=== PATIENT | male | born 1955 | race Two or more races ===

== ENCOUNTER → 2016-03-03 | Outpatient (CLI) | payer OTHER ==
[~2016-03-03] MED LIST: ASPIRIN81 MG ORAL; ENALAPRIL MALEA10 MG ORAL; GABAPENTIN300 MG ORAL; GLIPIZIDE5 MG ORAL; IBUPROFEN600 MG ORAL; METFORMIN HCL1000 M1 ORAL; MULTIVITAMINS1 EAC2 ORAL; PANTOPRAZOLE SO40 MG ORAL; SIMVASTATIN20 MG ORAL; TRADJENTA5 MG PO
[2016-03-03 09:03] LABS: BASOPHILS % (AUTO) 0.6 % (0.0-2.0); EOSINOPHILS % (AUTO) 2.6 % (0.0-3.0); LYMPHOCYTES % (AUTO) 18.3 % (20.0-45.0); MEAN CORPUSCULAR HEMOGLOBIN 28.8 PG (27.0-31.0); MEAN CORPUSCULAR HGB CONC 32.4 G/DL (32.0-36.0); MEAN CORPUSCULAR VOLUME 89 FL (80-99); MEAN PLATELET VOLUME 7.4 FL (6.5-10.1); MONOCYTES % (AUTO) 8.3 % (1.0-10.0); NEUTROPHILS % (AUTO) 70.1 % (45.0-75.0); PLATELET COUNT 260 K/UL (150-450); RED BLOOD COUNT 4.87 M/UL (4.70-6.10); RED CELL DISTRIBUTION WIDTH 12.7 % (11.6-14.8); WHITE BLOOD COUNT 9.5 K/UL (4.8-10.8)
[2016-03-03 09:22] LABS: PROTHROMBIN TIME 10.5 SEC (9.30-11.50)
[2016-03-03 09:23] LABS: ALANINE AMINOTRANSFERASE 32 U/L (3-41); ALBUMIN/GLOBULIN RATIO 1.1 (1.0-2.7); ANION GAP 15 (5-15); ASPARTATE AMINO TRANSFERASE 25 U/L (5-40); CALCIUM 9.9 mg/dL (8.6-10.2); CARBON DIOXIDE 26 mEQ/L (20-30); CHLORIDE 94 mEQ/L (98-107); GLOMERULAR FILTRATION RATE > 60 mL/min (>60); HEMOLYSIS 6; POTASSIUM 4.7 mEQ/L (3.4-4.9); SODIUM 135 mEQ/L (135-145); TOTAL PROTEIN 8.3 g/dL (6.6-8.7)
[2016-03-03 09:30] LABS: HEMOGLOBIN A1C 7.5 % (< 6.0)
--- NOTE | 2016-03-04 15:58 | Diagnostic Imaging Report ---
Indication: COUGH Technique: PA and lateral views of the chest. Findings: Comparison: 01/05/2014 Bridging osteophytes/syndesmophytes again noted throughout the thoracic spine. The extra pulmonary soft tissues, cardiomediastinal silhouette, pulmonary vasculature and parenchyma, and pleural surfaces remain unremarkable. 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 Otherwise negative PA and lateral chest radiographs , unchanged
== END | disposition home or self-care (01) ==
LOC: RAD 08:29
DX: Z01.818 Encounter for other preprocedural examination (principal); Z01.811 Encounter for preprocedural respiratory examination; H26.9 Unspecified cataract; E11.9 Type 2 diabetes mellitus without complications; R05 Cough
CPT/HCPCS: 36415; 71020; 80053; 83036; 85025; 85610; 85730

== ENCOUNTER → 2016-05-06 | Day surgery (SDC) | payer OTHER ==
[2016-04-24 10:57] LABS: BASOPHILS % (AUTO) 0.6 % (0.0-2.0); EOSINOPHILS % (AUTO) 1.9 % (0.0-3.0); MEAN CORPUSCULAR HEMOGLOBIN 29.2 PG (27.0-31.0); MEAN CORPUSCULAR HGB CONC 33.2 G/DL (32.0-36.0); MEAN CORPUSCULAR VOLUME 88 FL (80-99); MEAN PLATELET VOLUME 6.7 FL (6.5-10.1); NEUTROPHILS % (AUTO) 75.5 % (45.0-75.0); PLATELET COUNT 246 K/UL (150-450); RED BLOOD COUNT 4.89 M/UL (4.70-6.10); RED CELL DISTRIBUTION WIDTH 12.2 % (11.6-14.8); WHITE BLOOD COUNT 9.8 K/UL (4.8-10.8)
[2016-04-24 11:03] LABS: PROTHROMBIN TIME 10.2 SEC (9.30-11.50)
[2016-04-24 11:11] LABS: ALANINE AMINOTRANSFERASE 34 U/L (3-41); ALBUMIN/GLOBULIN RATIO 1.2 (1.0-2.7); ANION GAP 17 (5-15); ASPARTATE AMINO TRANSFERASE 28 U/L (5-40); CALCIUM 9.3 mg/dL (8.6-10.2); CARBON DIOXIDE 26 mEQ/L (20-30); CHLORIDE 93 mEQ/L (98-107); CHOLESTEROL 156 mg/dL (< 200); CHOLESTEROL/HDL RATIO 1.9 (3.3-4.4); CREATININE 0.9 mg/dL (0.7-1.2); GLOMERULAR FILTRATION RATE > 60 mL/min (>60); HEMOLYSIS 7; LDL CHOLESTEROL (CALC.) 61 mg/dL (60-99); MAGNESIUM 1.5 mg/dL (1.7-2.5); PHOSPHORUS 3.1 mg/dL (2.5-4.8); POTASSIUM 4.1 mEQ/L (3.4-4.9); SODIUM 136 mEQ/L (135-145)
[2016-04-24 11:15] LABS: HEMOGLOBIN A1C 7.1 % (< 6.0)
--- NOTE | 2016-05-02 11:58 | Pre-Procedure Note/Attestation ---
Pre-Procedure Note/Attestation Complete Prior to Procedure Planned Procedure: right Procedure Narrative: 1.CATARACT EXTRACTION WITH PHACO AND PC IOL IMPLANTATION, RIGHT EYE. Indications for Procedure Pre-Operative Diagnosis: 1. CATARACT, RIGHT EYE. Attestation I attest that I discussed the nature of the procedure; its benefits; risks and complications; and alternatives (and the risks and benefits of such alternatives ), prior to the procedure, with the patient (or the patient's legal nutrition representative). I attest that, if there was a reasonable possibility of needing a blood transfusion, the patient (or the patient's legal nutrition representative) was given the [facility] standardized written summary, pursuant to the Daryl Helen Blood Safety Act ([place] Health and Safety Code # 1645, as amended). I attest that I re-evaluated the patient just prior to the surgery and that there has been no change in the patient's H&P, except as documented below: MK WEINBERG May 02, 2016 11:58
[2016-05-06] VITALS (7 sets, daily range): BP systolic 123–171; BP diastolic 55–84
[~2016-05-06] VITALS: Ht 162.6 cm; Wt 90.7 kg
[~2016-05-06] MED LIST changes: +Akten 3.5% 1ml Btl ONE; +BSS 15ml BTL ONE; +BSS 500ml btl ONE; +Dexamethasone 4mg/ml vial ONE; +Diclofenac Sod 0.1% Op Soln ONE; +EPINEPHrine 1mg/1ml Amp ONE; +Gatifloxacin Opth Solution 0.5% ONE; +LR 1000ml 1,000 ML IV SCH; +LR 1000ml 1,000 ML IVLG SCH; +Lidocaine 1% MPF 10mg/ml 5ml ONE; +Midazolam 2mg/2ml Inj ONE; +NS Irrig 1000ml ONE; +Phenylephrine 10% Opth Soln 5ml ONE; +Povidone-Iodine 5% opth solution ONE; +Sodium Hyaluronate 10 mg/ml 0.85ml ONE; +Sterile Water Irrig 1000ml IRRIG ONE; +Tropicamide 1% Opth Soln ONE; +acetaZOLAMIDE 125mg tab ORAL ONE; +fentaNYL 100 mcg/2 mL IV PRN
[2016-05-06] MEDS: Diclofenac Sod 0.1% Op Soln RIGHT EYE SCH ×3 (06:31→06:54)
[2016-05-06] MEDS: Akten 3.5% 1ml Btl RIGHT EYE SCH ×3 (06:31→06:54)
[2016-05-06] MEDS: Phenylephrine 10% Opth Soln 5ml RIGHT EYE SCH ×3 (06:31→06:54)
[2016-05-06] MEDS: Gatifloxacin Opth Solution 0.5% RIGHT EYE SCH ×3 (06:32→06:54)
[2016-05-06] MEDS: Tropicamide 1% Opth Soln RIGHT EYE SCH ×3 (06:32→06:54)
--- NOTE | 2016-05-06 08:41 | Anethesia Preoperative Eval ---
Anesthesia Pre-op PMH/ROS General Date of Evaluation: May 06, 2016 Time of Evaluation: 08:11 Anesthesiologist: Santhosh ASA Score: ASA 3 Mallampati Score Class I : Soft palate, uvula, fauces, pillars visible Class II: Soft palate, uvula, fauces visible Class III: Soft palate, base of uvula visible Class IV: Only hard plate visible Mallampati Classification: Class III Surgeon: Lazara Diagnosis: Cataract right eye Surgical Procedure: Extraction of cataract with IOL Family History: no anesthesia problems Allergies: Coded Allergies: PENICILLINS (Verified Allergy, Unknown, 05/02/16) Medications: see eMAR Past Medical History Cardiovascular: Reports: HTN, Denies: CAD, [place], arrhythmia, other, valve dz Pulmonary: Denies: COPD, TRICIA, asthma, other Gastrointestinal/Genitourinary: Reports: GERD, Denies: CRI, ESRD, other Neurologic/Psychiatric: Denies: CVA, TIA, dementia, depression/anxiety, other Endocrine: Reports: DM, Denies: hypothyroidism, other, steroids HEENT: Reports: cataract (L), cataract (R) Hematology/Immune: Denies: DVT, anemia, bleeding disorder, other Musculoskeletal/Integumentary: Reports: OA PMH Narrative: HTN, DM, GERD, OA PSxH Narrative: Cataract surgery, ?scalp vs cranial surgery? (patient is unclear but denies any neurological issues except chronic right LE pain tx with Gabapentin). Anesthesia Pre-op Phys. Exam Physician Exam Last Vital Signs Date Time Temp Pulse Resp B/P Pulse Ox O2 Delivery O2 Flow Rate FiO2 05/06/16 06:35 98.5 76 18 171/84 98 Room Air Constitutional: NAD Neurologic: CN 2-12 intact Cardiovascular: RRR, no M/R/G Respiratory: CTA Airway Exam Mallampati Score: Class III MO: full ROM: full Teeth: intact Anesthesia Pre-op A/P Labs No contraindication for surgery Accucheck 84 Studies Pre-op Studies: EKG - NSR Risk Assessment & Plan Assessment: Hypertensive diabetic male for cataract extraction Plan: MAC, TIVA Status Change Before Surgery: No Pre-Antibiotics Drug: None TERESA KOWALSKI M.D. May 06, 2016 08:41
--- NOTE | 2016-05-06 08:42 | Immediate Post-Op Evaluation ---
Immediate Post-Op Evalulation Immediate Post-Op Evalulation Procedure: Extraction of cataract with IOL right eye Date of Evaluation: May 06, 2016 Time of Evaluation: 09:12 IV Fluids: 300 Blood Pressure Systolic: 142 Blood Pressure Diastolic: 71 Pulse Rate: 69 Respiratory Rate: 15 O2 Sat by Pulse Oximetry: 99 Temperature (Fahrenheit): 98.2 Pain Score (1-10): 0 Nausea: No Vomiting: No Complications No complication Patient Status: awake, patent, none Hydration Status: adequate Drug: None TERESA KOWALSKI M.D. May 06, 2016 08:42
--- NOTE | 2016-05-06 09:09 | 48 Hour Post Anesthesia Eval ---
Post Anesthesia Evaluation Procedure: Extraction of cataract with IOL right eye Date of Evaluation: May 06, 2016 Time of Evaluation: 09:40 Blood Pressure Systolic: 126 0: 55 Pulse Rate: 73 Respiratory Rate: 12 O2 Sat by Pulse Oximetry: 99 Airway: patent Nausea: No Vomiting: No Pain Intensity: 0 Hydration Status: adequate Cardiopulmonary Status: stable Mental Status/LOC: patient returned to baseline Follow-up Care/Observations: As per surgery Post-Anesthesia Complications: No anesthetic complication Follow-up care needed: N/A TERESA KOWALSKI M.D. May 06, 2016 09:09
--- NOTE | 2016-05-06 09:10 | Brief Operative Note ---
Immediate Post Operative Note Operative Note Chief Complaint: blurry vision, right eye. Difficulty reading and driving. Pre-op Diagnosis: 1. CATARACT, RIGHT EYE. Procedure: Cataract extraction with phaco and PC IOL implantation, right eye Post-op Diagnosis: same as pre-op Surgeon: Mk Haile MD Yacht Captain: None Additional Surgeons: None Anesthesiologist: Dr. Trevizo Anesthesia: MAC Specimen: none Complications: none Condition: stable Estimated Blood Loss: none Drains: none Implant(s) used?: Yes - Monofocal PC IOL was implanted in the right eye without complication MK HAILE May 06, 2016 09:10
--- NOTE | 2016-05-06 19:09 | Discharge Summary ---
Discharge Summary Discharge Summary Discharge Summary DATE OF ADMISSION:05/06/2016 DATE OF DISCHARGE: 2016 REASON FOR HOSPITALIZATION:Cataract, right eye SURGERY PERFORMED: Cataract extractin with antonieta and PC IOL implantation, left eye CONDITION IN THE HOSPITAL:The patient tolerated the surgery without complications. DISCHARGE CONDITION: The patient was stable at discharge. DISCHARGE MEDICATIONS: 1. Vigamox eye drops one drop q.i.d, 2. Prednisolone one drop q.i.d, 3.Ilevro, one dorop. POSTOPERATIVE ORDERS: The patient has to rest at home. No bending, No lifting, No watching Television tonight. POSTOPERATIVE FOLLOW UP: The patient will be followed in my office tomorrow morning at 7 o'clock. MK WEINBERG May 06, 2016 19:09
--- NOTE | 2016-05-06 19:19 | Operative Note - PDOC ---
Operative Note Operative Note Operative Report DATE OF OPERATION: 05/06/2016 FACILITY: [facility] SURGEON: Jhon Haile RAISED PRINTER: None ANESTHESIOLOGIST: Dr. Trevizo ANESTHESIA: Monitored anesthesia care (MAC) PREOPERATIVE DIAGNOSES: 1. Cataract, left eye. 2. Astigmatism, left eye. POSTOPERATIVE DIAGNOSES: 1. Cataract, left eye. 2. Astigmatism, left eye. SURGERY PERFORMED: 1. Cataract extraction with phacoemulsification and posterior chamber intraocular lens implantation in the left eye. 2. Limbal relaxing incision (I.R.I) left. INDICATION FOR SURGERY: The patient is an 60- year-old gentleman with history of high blood pressure, hyperlipidemia, diabetes mellitus, arthritis, morbid obesity, psoriasis. He has taking norvasc, onglyza, protonix, zocor. some back pain and osteoarthritis as well. He is taking Flomax for BPH. Diovan for high blood pressure. Plavix, aspirin and Lipitor for hypercholeserolemia. He is complaining of blurry vision in the right eye. On examination of the right eye. , the cornea is clear. Anterior chamber is clean and quiet, but is shallow. The pupillary reflex is normal. There is no RAPD. There is 4 nuclear sclerosis and 2 cortical cataract. The fundus shows normal optic disc, normal macula, and periphery retina is flat. To improve his vision int he left eye, the cataract has to be removed and posterior chamber intraocular lens has to be implanted. INFORMED CONSENT: The nature of the surgery, risks benefits, alternatives, and potential complications were explained all in detail to the patient. The potential complications including. But not limited to bleeding, infection, posterior capsular rupture,lens subluxation, flat anterior chamber,iris prolapse , uveitis, corneal edema, macular edema, endophthalmitis, retinal detachment, loss of vision and even loss of the eye were all explained in detail to the patient. The patient voiced understanding and accepted all the complications.The alternatives including accommodating lens, multifocal lens, toric lens, and conventional cataract surgery with limbal relaxing incision (LRI ) for treatment of astigmatism were all explained in detail to the patient who voiced understanding. The patient elected to have cataract surgery with insertion of the multifocal lens and limbal relaxing incision for astigmatism. Then, he signed the consent from,which is in the chart. DESCRIPTION OF SURGERY AND FINDINGS: Following hat, the patient was taken to the operation room in a stable condition. Lidocaine gel Akten 3.5% were applied to the conjuctiva of the left eye. Anesthesia was given by the anesthesiologist , Dr. Mcfarland. After adequate anesthesia and sedation had been achieved, the right eye was prepped and draped in the usual and sterile fashion for intraocular surgery.Following that, a speculum was placed in the left eye. Following that, before the patient was taken to the operation room, the 180 and 90 meridian of the cornea was marked. In the operation room, using a corneal marker and marking pen, the steep meridian of the cornea was marked. Following that, using a matteo knife, two parallel incisions was placed on the steep meridian of the cornea to treat the patients astigmatism. Following that, using a super sharp knife, a clear corneal side port was created. Following that 1% lidocaine without preservative (MPF) was injected into the anterior chamber.Viscoelastic agent Healon was injected into the anterior chamber. Following that, a clear corneal temporal keratotomy was performed with a 2.8 mm keratome. Following that, viscoelastic agent was injected into the anterior chamber again. Following that, Vision blue was injected under the viscoelastic agent to stain the anterior capsule. Following that, a clear fresh viscoelastic agent was injected into the anterior chamber again. Under the viscoelastic agent , an anterior capsulotomy was performed in the fashion of capsulorrhexis beautifully. Following that viscoelastic agent was removed from the anterior chamber. Following that, using a balanced salt solution hydrodissection and hydrodelineation was performed and the nucleus was freed. Following that, the viscoelastic agent was injected into the anterior chamber again to protect the endothelium of the cornea. Following that, using phacoemulsification machine in the fashion of horizontal chop, the nucleus was removed in toto. Following that , the cortical material was removed from the capsular bag with irrigation aspiration unit and the capsular bag was polished.Following that, the capsular bag was filled with viscoelastic agent. Following that, a+18.5 diopter , ZCB00 foldable PCIOL with serial number [id number] was injected into the capsular bag. Using a Sinskey hook, the lens was manipulated within the proper position.Following that, viscoelastic agent was removed from the anterior and posterior part of the lens.The anterior chamber was filled with balanced salt solution. Following that, the wound was hydrated with balanced salt solution and the wound was checked for leakage. There was no leakage. Following that, the wound was hydrated and the wound was checked for leakage. There was no leakage. Following that, Vigamox eye drops were applied to the conjuctiva of the left eye. The patient tolerated the surgery without complications. At the end of the surgery, the eye was patched with a clear sterile fenestrated shield. Following that, the patient was transferred to the recovery room. In the recovery room, 125mg Diamox was given by mouth stat. Postoperative orders and directions were given to the patient. The patient will be discharged home upon stabilization. The patient will be followed in my office tomorrow morning at 7 o 'clock. MD SULTANA Parker JOHN May 06, 2016 19:19
--- NOTE | 2016-05-25 09:42 | Physician Query ---
PLEASE COMPLETE DOCUMENT BEFORE SIGNING Dear Dr. Jhon Haile Date: 05/25/2016 Radiology Assistant/CDS Name: Miladis Skinner CCS Exercise your independent professional judgment when responding to the query. Questions asked do not imply a particular answer is desired or expected. We greatly appreciate your clarification on this issue. CLINICAL DOCUMENTATION STATES: REASON FOR HOSPITALIZATION:Cataract, right eye SURGERY PERFORMED: Cataract extractin with antonieta and PC IOL implantation, left eye DATE OF OPERATION: 05/06/2016 POSTOPERATIVE DIAGNOSES: 1. Cataract, left eye. 2. Astigmatism, left eye. SURGERY PERFORMED: 1. Cataract extraction with phacoemulsification and posterior chamber intraocular lens implantation in the left eye. 2. Limbal relaxing incision (I.R.I) left. Immediate post operative note: Pre-op Diagnosis: 1. CATARACT, RIGHT EYE. Procedure: Cataract extraction with phaco and PC IOL implantation, right eye The H&P, consent, and other documents of the chart have right eye but op report has left eye. Please respond to the following question: Please indicate the correct eye that surgery was performed on: ( ) Right ( ) Left Jhon Haile M.D. Date & [facility]
== END | disposition home or self-care (01) ==
LOC: SUR 05:49
DX: H25.11 Age-related nuclear cataract, right eye (principal); H25.011 Cortical age-related cataract, right eye; H52.201 Unspecified astigmatism, right eye; E78.5 Hyperlipidemia, unspecified; I10 Essential (primary) hypertension; E11.9 Type 2 diabetes mellitus without complications; E66.01 Morbid (severe) obesity due to excess calories; Z68.35 Body mass index [BMI] 35.0-35.9, adult; M19.90 Unspecified osteoarthritis, unspecified site; L40.9 Psoriasis, unspecified; L28.0 Lichen simplex chronicus; K21.9 Gastro-esophageal reflux disease without esophagitis; N40.0 Benign prostatic hyperplasia without lower urinary tract symptoms
CPT/HCPCS: 36415; 66984; 80053; 80061; 82962; 83036; 83735; 84100; 85025; 85610; 85730; J0171; J1100; J2250; V2632; 94003; 94150

== ENCOUNTER → 2016-05-13 | Day surgery (SDC) | payer OTHER ==
--- NOTE | 2016-05-09 09:45 | Pre-Procedure Note/Attestation ---
Pre-Procedure Note/Attestation Complete Prior to Procedure Planned Procedure: left Procedure Narrative: 1.CATARACT EXTRACTION WITH PHACO AND PC IOL IMPLANTATION, LEFT EYE. Indications for Procedure Pre-Operative Diagnosis: 1. CATARACT, LEFT EYE. Attestation I attest that I discussed the nature of the procedure; its benefits; risks and complications; and alternatives (and the risks and benefits of such alternatives ), prior to the procedure, with the patient (or the patient's legal circulation representative). I attest that, if there was a reasonable possibility of needing a blood transfusion, the patient (or the patient's legal circulation representative) was given the [facility] standardized written summary, pursuant to the Daryl Helen Blood Safety Act ([place] Health and Safety Code # 1645, as amended). I attest that I re-evaluated the patient just prior to the surgery and that there has been no change in the patient's H&P, except as documented below: MK WEINBERG May 09, 2016 09:45
[2016-05-13] VITALS (10 sets, daily range): BP systolic 144–156; BP diastolic 70–87
[~2016-05-13] VITALS: Ht 162.6 cm; Wt 90.7 kg
[~2016-05-13] MED LIST changes: +Carbachol 0.01% Op Soln 1.5ml vial ONE; +D5 1/2NS 1,000 ML IV SCH; +D5 1/2NS 1000ml IV ONE; +DiphenhydrAMINE 50mg/ml Inj IVP PRN; -LR 1000ml 1,000 ML IV SCH; +Propofol 10mg/ml 20ml IV ONE; +Tetracaine 0.5% Opth Soln ONE; +fentaNYL 100 mcg/2 mL IV ONE
[2016-05-13] MEDS: Akten 3.5% 1ml Btl LEFT EYE SCH ×3 (06:14→06:30)
[2016-05-13] MEDS: Phenylephrine 10% Opth Soln 5ml LEFT EYE SCH ×3 (06:14→06:30)
[2016-05-13] MEDS: Tropicamide 1% Opth Soln LEFT EYE SCH ×3 (06:14→06:30)
[2016-05-13] MEDS: Diclofenac Sod 0.1% Op Soln LEFT EYE SCH ×3 (06:14→06:30)
[2016-05-13] MEDS: Gatifloxacin Opth Solution 0.5% LEFT EYE SCH ×3 (06:15→06:31)
--- NOTE | 2016-05-13 07:42 | Anethesia Preoperative Eval ---
Anesthesia Pre-op PMH/ROS General Date of Evaluation: May 13, 2016 Time of Evaluation: 07:10 Anesthesiologist: Michael ASA Score: ASA 3 Mallampati Score Class I : Soft palate, uvula, fauces, pillars visible Class II: Soft palate, uvula, fauces visible Class III: Soft palate, base of uvula visible Class IV: Only hard plate visible Mallampati Classification: Class III Surgeon: Lazara Diagnosis: L eye cataract Surgical Procedure: L eye cataract extraction Anesthesia History: none Family History: no anesthesia problems Allergies: Coded Allergies: PENICILLINS (Verified Allergy, Unknown, 05/02/16) Past Medical History Cardiovascular: Reports: HTN, Denies: CAD, [place], arrhythmia, other, valve dz Pulmonary: Reports: TRICIA, Denies: COPD, asthma, other Gastrointestinal/Genitourinary: Reports: GERD, Denies: CRI, ESRD, other Neurologic/Psychiatric: Denies: CVA, TIA, dementia, depression/anxiety, other Endocrine: Reports: DM, Denies: hypothyroidism, other, steroids HEENT: Reports: cataract (L), cataract (R), Denies: [place] (L), [place] (R), glaucoma, other Hematology/Immune: Denies: DVT, anemia, bleeding disorder, other Musculoskeletal/Integumentary: Denies: DDD, DJD, OA, RA, edema, other Other: obesity PMH Narrative: As above PSxH Narrative: R eye cataract Anesthesia Pre-op Phys. Exam Physician Exam Last Vital Signs Date Time Temp Pulse Resp B/P Pulse Ox O2 Delivery O2 Flow Rate FiO2 05/13/16 06:28 98.0 76 20 154/87 98 Room Air Constitutional: NAD Neurologic: CN 2-12 intact Cardiovascular: RRR, no M/R/G Respiratory: CTA Gastrointestinal: other - obesity Airway Exam Mallampati Score: Class III MO: limited Neck: short ROM: limited Teeth: missing Dentures: no lower, no upper Anesthesia Pre-op A/P Labs see chart Studies Pre-op Studies: EKG - NSR Risk Assessment & Plan Assessment: ASA 3 Plan: MAC Status Change Before Surgery: No Pre-Antibiotics Drug: none MARY DOTSON M.D. May 13, 2016 07:42
--- NOTE | 2016-05-13 08:07 | Brief Operative Note ---
Immediate Post Operative Note Operative Note Chief Complaint: Blurry vision, left eye. Difficulty driving and reading Pre-op Diagnosis: 1. CATARACT, LEFT EYE. Procedure: Cataract extraction with phaco and PC IOL imlantation, left eye Post-op Diagnosis: same as pre-op Surgeon: Mk Haile MD. Clinical Veterinarian: None Additional Surgeons: None Anesthesiologist: Dr. Rodriguez Anesthesia: MAC Specimen: none Complications: none Condition: stable Estimated Blood Loss: none Drains: none Implant(s) used?: Yes - Monofocal PC IOl implanted in the left eye without ccomplication MK HAILE May 13, 2016 08:07
--- NOTE | 2016-05-13 08:38 | Immediate Post-Op Evaluation ---
Immediate Post-Op Evalulation Immediate Post-Op Evalulation Procedure: L eye cataract extraction with IOL Date of Evaluation: May 13, 2016 Time of Evaluation: 08:08 IV Fluids: 200 Blood Products: none Estimated Blood Loss: none Urinary Output: none Blood Pressure Systolic: 134 Blood Pressure Diastolic: 62 Pulse Rate: 78 Respiratory Rate: 20 O2 Sat by Pulse Oximetry: 99 Temperature (Fahrenheit): 97.5 Pain Score (1-10): 1 Nausea: No Vomiting: No Complications none Patient Status: awake, patent, none Hydration Status: adequate MARY DOTSON M.D. May 13, 2016 08:38
--- NOTE | 2016-05-13 09:32 | 48 Hour Post Anesthesia Eval ---
Post Anesthesia Evaluation Procedure: L eye cataract extraction with IOL Date of Evaluation: May 13, 2016 Time of Evaluation: 09:31 Blood Pressure Systolic: 144 0: 75 Pulse Rate: 68 Respiratory Rate: 20 Temperature (Fahrenheit): 97.6 O2 Sat by Pulse Oximetry: 98 Airway: patent Nausea: No Vomiting: No Pain Intensity: 1 Hydration Status: adequate Cardiopulmonary Status: stable Mental Status/LOC: patient returned to baseline Follow-up Care/Observations: n/a Post-Anesthesia Complications: none Follow-up care needed: ready to discharge MARY DOTSON M.D. May 13, 2016 09:32
--- NOTE | 2016-05-13 15:48 | Discharge Summary ---
Discharge Summary Discharge Summary Discharge Summary DATE OF ADMISSION:05/13/2016 DATE OF DISCHARGE:05/13/2016 REASON FOR HOSPITALIZATION:Cataract,laft eye SURGERY PERFORMED: Cataract extraction with phaco and PC IOL implantation, left eye CONDITION IN THE HOSPITAL:The patient tolerated the surgery without complications. DISCHARGE CONDITION: The patient was stable at discharge. DISCHARGE MEDICATIONS: 1. Vigamox eye drops one drop q.i.d, 2. Prednisolone one drop q.i.d, 3. Ilevro eye drop, one drop q.d. POSTOPERATIVE ORDERS: The patient has to rest at home. No bending, No lifting, No watching Television tonight. POSTOPERATIVE FOLLOW UP: The patient will be followed in my office tomorrow morning at 9 o'clock. MK WEINBERG May 13, 2016 15:48
--- NOTE | 2016-05-13 16:09 | Operative Note - PDOC ---
Operative Note Operative Note Operative Report DATE OF OPERATION:05/13/2016 FACILITY: [facility] SURGEON: Jhon Haile EXCEPTIONAL STUDENT EDUCATION AIDE: None ANESTHESIOLOGIST: Dr. Rodriguez ANESTHESIA: Monitored anesthesia care (MAC) PREOPERATIVE DIAGNOSES: 1. Cataract, left eye POSTOPERATIVE DIAGNOSES: 1. Cataract, left eye SURGERY PERFORMED: 1. Cataract extraction with phacoemulsification and posteriro chamber intraocular lens implantation in the left eye. INDICATION FOR SURGERY: The patient is a 60- year-old gentleman with history of high blood pressure, dyslipidemia, diabetes mellitus.arthritis, morbid obesity, psoriasis. He is taking aspirin, enalepril, ferrous sulfate, gabapentin , glipizide, metformin,norvasc, onglyza, and zocor. He is not allergic to any medicationhe denies any drug or tobacco use. He is complaining of blurry vision in the left eye. On examination of the Left eye., the cornea is clear. Anterior chamber is clean and quiet, but is shallow. The pupillary reflex is normal. There is no RAPD. There is 4 nuclear sclerosis and 2 cortical cataract. The fundus shows normal optic disc, normal macula, and periphery retina is flat, He had cataract surgery in the right eye last week and he is happy with the result. To improve his vision int he left eye, the cataract has to be removed and posterior chamber intraocular lens has to be implanted. INFORMED CONSENT: The nature of the surgery, risks benefits, alternatives, and potential complications were explained all in detail to the patient. The potential complications including. But not limited to bleeding, infection, posterior capsular rupture,lens subluxation, flat anterior chamber,iris prolapse , uveitis, corneal edema, macular edema, endophthalmitis, retinal detachment, loss of vision and even loss of the eye were all explained in detail to the patient. The patient voiced understanding and accepted all the complications.The alternatives including accommodating lens, multifocal lens, toric lens, and conventional cataract surgery with limbal relaxing incision (LRI ) for treatment of astigmatism were all explained in detail to the patient who voiced understanding. The patient elected to have cataract surgery without insertion of the multifocal lens and limbal relaxing incision for astigmatism. only monofocal lens insertion.Then, he signed the consent from,which is in the chart. DESCRIPTION OF SURGERY AND FINDINGS: Following hat, the patient was taken to the operation room in a stable condition. Lidocaine gel Akten 3.5% were applied to the conjunctiva of the left eye. Anesthesia was given by the anesthesiologist , . After adequate anesthesia and sedation had been achieved, the left eye was prepped and draped in the usual and sterile fashion for intraocular surgery.Following that, a speculum was placed in the left eye. Following that, using a super sharp knife, a clear corneal side port was created. Following that 1% lidocaine without preservative (MPF) was injected into the anterior chamber.Viscoelastic agent Healon was injected into the anterior chamber. Following that, a clear corneal temporal keratotomy was performed with a 2.8 mm keratome. Following that, viscoelastic agent was injected into the anterior chamber again. Following that, Vision blue was injected under the viscoelastic agent to stain the anterior capsule. Following that, a clear fresh viscoelastic agent was injected into the anterior chamber again. Under the viscoelastic agent, an anterior capsulotomy was performed in the fashion of capsulorrhexis beautifully. Following that viscoelastic agent was removed from the anterior chamber. Following that, using a balanced salt solution hydrodissection and hydrodelineation was performed and the nucleus was freed. Following that, the viscoelastic agent was injected into the anterior chamber again to protect the endothelium of the cornea. Following that, using phacoemulsification machine inthe fashion of horizontal chop, the nucleus was removed in toto. Following that, the cortical material was removed from the capsular bag with irrigation aspiration unit and the capsular bag was polished.Following that, the capsular bag was filled with viscoelastic agent. Following that, a+18.0 18 diopter , [id number] foldable PCIOL with serial [id number] was injected into the capsular bag. Using a Sinskey hook, the lens was manipulated within the proper position.Following that, viscoelastic agent was removed from the anterior and posterior part of the lens.The anterior chamber was filled with balanced salt solution. Following that, the wound was hydrated with balanced salt solution and the wound was checked for leakage. There was no leakage. Following that, the wound was hydrated and the wound was checked for leakage. There was no leakage. Following that, Vigamox eye drops were applied to the conjuctiva of the left eye. The patient tolerated the surgery without complications. At the end of the surgery, the eye was patched with a clear sterile fenestrated shield. Following that, the patient was transferred to the recovery room. In the recovery room, 125mg Diamox was given by mouth stat. Postoperative orders and directions were given to the patient. The patient will be discharged home upon stabilization. The patient will be followed in my office tomorrow morning at 7 o 'clock. MD SULTANA Parker JOHN May 13, 2016 16:09
--- NOTE | 2016-05-14 16:39 | Pre-op HX & Phy Repo 2 SIG ---
DATE OF ADMISSION: 05/13/2016 REASON FOR EVALUATION: I was asked by Dr. Jhon Haile to see this 61-year-old male, who is going for elective surgery on the left eye. The patient has cataract, left eye. Please see full history and physical by music researcher, Dr. Jhon Haile. The patient was evaluated. Chart was reviewed. PAST MEDICAL HISTORY: Remarkable for hypertension, diabetes mellitus type 2. Denies history of heart attack, chest pain, or palpitation. The patient had head injury many years ago. No history of respiratory problem. No history of renal failure. No GI bleeding. No stroke or seizures. Denies history of thyroid problem. The patient has peripheral neuropathy. This is secondary to diabetes. No anemia. PAST SURGICAL HISTORY: Right eye cataract and head injuries. FAMILY HISTORY: Father from complication of hypertension and diabetes. Mother not known, of age or . ALLERGY: To penicillin. MEDICATIONS: Metformin, glipizide, Tradjenta, baby aspirin, multivitamins, enalapril, and gabapentin. HABITS: The patient denies history of smoke or alcohol habits. PHYSICAL EXAMINATION: GENERAL: The patient is alert, well-developed, well-nourished male in his 60s. VITAL SIGNS: Blood pressure 154/87, temperature 98, respirations 20, O2 saturation 98%, and pulse 76 and regular. SKIN: Dry, clear. No diaphoresis. LYMPH NODES: Not enlarged. HEENT: Head normocephalic. Ears, clear. Eyes, full description per Dr. Jhon Haile. Mouth clear and moist. No dentures. NECK: Supple. No jugular vein distention. Carotid artery +2. Trachea midline. CHEST: No deformity or asymmetry. LUNGS: Clear. No rales or rhonchi. No wheezing. HEART: Sinus rhythm. No ectopy. No murmur. No S3 or S4. ABDOMEN: Soft, benign. Liver and spleen not enlarged. EXTREMITIES: No calf tenderness. No edema. No varicose veins. GENITOURINARY TRACT: No dysuria. No CVA tenderness. NERVOUS SYSTEM: No tremor. No nystagmus. LABORATORY AND DIAGNOSTIC DATA: The patient did not eat or drink from last night. Chest x-ray, no acute disease. 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 First blood sugar when the patient came was 56. We started D5 IV and blood sugar was 80 milligram/deciliter at 7 a.m. IMPRESSION: 1. Cataract, right eye. 2. Hypertension. 3. Diabetes mellitus type 2. 4. Hyperlipidemia. 5. Peripheral neuropathy. 6. Obesity. PLAN: Cataract extraction, left eye with intraocular lens implant per Dr. Jhon Haile. CONCLUSION: The patient's blood sugars stabilized. The patient has tendency to hypoglycemia. His vital signs are stable. The patient's condition optimized for surgery. Nilda Canada M.D. DR: Dora JOB#: [id number] CC:
== END | disposition home or self-care (01) ==
LOC: SUR 05:41
DX: H25.12 Age-related nuclear cataract, left eye (principal); H25.012 Cortical age-related cataract, left eye; E11.42 Type 2 diabetes mellitus with diabetic polyneuropathy; I10 Essential (primary) hypertension; E78.5 Hyperlipidemia, unspecified; E66.01 Morbid (severe) obesity due to excess calories; G47.33 Obstructive sleep apnea (adult) (pediatric); K21.9 Gastro-esophageal reflux disease without esophagitis; M19.90 Unspecified osteoarthritis, unspecified site; L40.9 Psoriasis, unspecified; Z79.84 Long term (current) use of oral hypoglycemic drugs; Z79.82 Long term (current) use of aspirin; Z88.0 Allergy status to penicillin
CPT/HCPCS: 66984; 82962; J0171; J1100; J2250; J2704; J3010; V2632; 94003; 94150

== ENCOUNTER 2016-12-22 08:23 | Outpatient (CLI) | payer OTHER ==
[~2016-12-22 08:23] MED LIST changes: -Akten 3.5% 1ml Btl ONE; -BSS 15ml BTL ONE; -BSS 500ml btl ONE; -Carbachol 0.01% Op Soln 1.5ml vial ONE; -D5 1/2NS 1,000 ML IV SCH; -D5 1/2NS 1000ml IV ONE; -Dexamethasone 4mg/ml vial ONE; -Diclofenac Sod 0.1% Op Soln ONE; -DiphenhydrAMINE 50mg/ml Inj IVP PRN; -EPINEPHrine 1mg/1ml Amp ONE; -Gatifloxacin Opth Solution 0.5% ONE; -LR 1000ml 1,000 ML IVLG SCH; -Lidocaine 1% MPF 10mg/ml 5ml ONE; -Midazolam 2mg/2ml Inj ONE; -NS Irrig 1000ml ONE; -Phenylephrine 10% Opth Soln 5ml ONE; -Povidone-Iodine 5% opth solution ONE; -Propofol 10mg/ml 20ml IV ONE; -Sodium Hyaluronate 10 mg/ml 0.85ml ONE; -Sterile Water Irrig 1000ml IRRIG ONE; -Tetracaine 0.5% Opth Soln ONE; -Tropicamide 1% Opth Soln ONE; -acetaZOLAMIDE 125mg tab ORAL ONE; -fentaNYL 100 mcg/2 mL IV ONE; -fentaNYL 100 mcg/2 mL IV PRN
[2016-12-22 08:48] LABS: BASOPHILS % (AUTO) 0.7 % (0.0-2.0); EOSINOPHILS % (AUTO) 3.8 % (0.0-3.0); HEMATOCRIT 44.2 % (42.0-52.0); HEMOGLOBIN 14.4 G/DL (14.2-18.0); MEAN CORPUSCULAR VOLUME 91 FL (80-99); MONOCYTES % (AUTO) 8.7 % (1.0-10.0); NEUTROPHILS % (AUTO) 64.8 % (45.0-75.0); PLATELET COUNT 252 K/UL (150-450); RED BLOOD COUNT 4.83 M/UL (4.70-6.10); RED CELL DISTRIBUTION WIDTH 11.8 % (11.6-14.8); WHITE BLOOD COUNT 8.4 K/UL (4.8-10.8)
[2016-12-22 08:59] LABS: APPEARANCE,URINE CLEAR; BILIRUBIN, URINE NEGATIVE (NEGATIVE); COLOR,URINE PALE YELLOW; GLUCOSE, URINE (UA) NEGATIVE (NEGATIVE); KETONES,URINE NEGATIVE (NEGATIVE); LEUKOCYTE ESTERASE ,URINE 1+ (NEGATIVE); NITRITE,URINE NEGATIVE (NEGATIVE); PH,URINE 8 (4.5-8.0); PROTEIN,URINE 2+ (NEGATIVE); UROBILINOGEN,URINE NORMAL MG/DL (0.0-1.0)
[2016-12-22 09:09] LABS: ALANINE AMINOTRANSFERASE 100 U/L (12-78); ALBUMIN 3.7 G/DL (3.4-5.0); ALBUMIN/GLOBULIN RATIO 0.8 (1.0-2.7); ALKALINE PHOSPHATASE 108 U/L (46-116); ANION GAP 7 mmol/L (5-15); ASPARTATE AMINO TRANSFERASE 42 U/L (15-37); BILIRUBIN,TOTAL 0.4 MG/DL (0.2-1.0); BLOOD UREA NITROGEN 14 mg/dL (7-18); CALCIUM 9.3 MG/DL (8.5-10.1); CARBON DIOXIDE 30 MMOL/L (21-32); CHLORIDE 100 MMOL/L (98-107); CREATININE 0.9 MG/DL (0.55-1.30); POTASSIUM 4.4 MMOL/L (3.5-5.1); SODIUM 137 MMOL/L (136-145)
[2016-12-22 09:23] LABS: PHOSPHORUS 3.6 MG/DL (2.5-4.9)
== END 2016-12-22 10:23 | disposition home or self-care (01) ==
LOC: LAB 08:23
DX: E11.9 Type 2 diabetes mellitus without complications (principal); I10 Essential (primary) hypertension
CPT/HCPCS: 36415; 80053; 81003; 82306; 82607; 82746; 83036; 83735; 84100; 84153; 84443; 85025

== ENCOUNTER 2017-01-19 08:46 | Outpatient (CLI) | payer OTHER | END 2017-01-19 10:46 | disposition home or self-care (01) | LOC: LAB 08:46 | DX: R79.1 Abnormal coagulation profile (principal) | CPT/HCPCS: 86705; 86709; 86803; 87340 ==

== ENCOUNTER 2017-01-26 09:36 | Outpatient (CLI) | payer OTHER ==
--- NOTE | 2017-01-29 11:03 | Diagnostic Imaging Report ---
APPROVED REPORT CPT Code: 15194 Symptoms Comments: Vascular calcifications VELOCITY MEASUREMENTS AND DOPPLER WAVEFORM ANALYSIS RIGHTcm/secWaveformSeverityLEFTcm/secWaveformSeverity Com Fem Art. 72TriphasicCom Fem Art. 83Triphasic Fem Art Prox. 72TriphasicFem Art Prox. 83Triphasic Fem Art Mid. 67TriphasicFem Art Mid. 92Triphasic Fem Art Dist. 87TriphasicFem Art Dist. 80Triphasic Pop Art Prox. 54TriphasicPop Art Prox. 88Triphasic COMMAND CENTER ANALYST Prox. 119TriphasicPTA Prox. 88Triphasic Per Art Prox. 61TriphasicPer Art Prox. 100Triphasic LUDY Prox. 58TriphasicATA Prox. 50Triphasic BILATERAL: Common femoral artery waveform analysis is within normal limits at rest. Color flow duplex sonography reveals mild calcification throughout the superficial femoral, and popliteal arteries. There is no evidence of stenosis or occlusion within these segments. The tibioperoneal trunks are patent. The posterior tibial, anterior tibial and dorsalis pedis arteries are also patent. KATHERINE within normal limits as follows: 1.1 (right leg) and 1.1 (left leg). Doppler tibial artery waveform analysis is within normal limits bilaterally.
--- NOTE | 2017-01-29 11:03 | Diagnostic Imaging Report ---
APPROVED REPORT CPT Code: 52540 Present Symptoms Comments: Vascular calcifications RIGHT LEG: Venous imaging reveals a patent deep venous system. There is no evidence of thrombus within the femoral, popliteal or tibial segments. The greater saphenous vein is also within normal limits. Doppler indicates normal spontaneous flow within these segments. LEFT LEG: Venous imaging reveals recanalized chronic thrombus in the superficial femoral vein. Large collateral vein noted anterior to the superficial femoral artery. The remainder of the deep venous system is within normal limits. There is no evidence of thrombus in the common femoral, popliteal or calf veins. The greater saphenous vein is also within normal limits. Doppler indicates normal spontaneous flow within these segments. There is no evidence of acute deep vein thrombosis.
== END 2017-01-26 11:36 | disposition home or self-care (01) ==
LOC: VAS 09:36
DX: I70.0 Atherosclerosis of aorta (principal)
CPT/HCPCS: 93925; 93970

== ENCOUNTER 2017-09-02 09:09 | Outpatient (CLI) | payer OTHER ==
[2017-09-02 09:49] LABS: EOSINOPHILS % (AUTO) 5.1 % (0.0-3.0); HEMATOCRIT 39.8 % (42.0-52.0); HEMOGLOBIN 13.3 G/DL (14.2-18.0); LYMPHOCYTES % (AUTO) 12.6 % (20.0-45.0); MEAN CORPUSCULAR VOLUME 88 FL (80-99); MONOCYTES % (AUTO) 9.1 % (1.0-10.0); NEUTROPHILS % (AUTO) 72.2 % (45.0-75.0); PLATELET COUNT 241 K/UL (150-450); RED BLOOD COUNT 4.52 M/UL (4.70-6.10); RED CELL DISTRIBUTION WIDTH 12.1 % (11.6-14.8); WHITE BLOOD COUNT 10.6 K/UL (4.8-10.8)
[2017-09-02 10:08] LABS: ALANINE AMINOTRANSFERASE 38 U/L (12-78); ALBUMIN 3.5 G/DL (3.4-5.0); ALBUMIN/GLOBULIN RATIO 0.8 (1.0-2.7); ALKALINE PHOSPHATASE 85 U/L (46-116); ANION GAP 6 mmol/L (5-15); ASPARTATE AMINO TRANSFERASE 19 U/L (15-37); BILIRUBIN,TOTAL 0.5 MG/DL (0.2-1.0); BLOOD UREA NITROGEN 17 mg/dL (7-18); CALCIUM 8.5 MG/DL (8.5-10.1); CARBON DIOXIDE 28 MMOL/L (21-32); CHLORIDE 103 MMOL/L (98-107); CHOLESTEROL 133 MG/DL (< 200); CREATININE 0.9 MG/DL (0.55-1.30); HDL CHOLESTEROL 68 MG/DL (40-60); PHOSPHORUS 3.6 MG/DL (2.5-4.9); POTASSIUM 4.3 MMOL/L (3.5-5.1); SODIUM 137 MMOL/L (136-145); TRIGLYCERIDES 72 MG/DL (30-150)
== END 2017-09-02 11:09 | disposition home or self-care (01) ==
LOC: LAB 09:09
DX: I10 Essential (primary) hypertension (principal); E11.9 Type 2 diabetes mellitus without complications; M25.561 Pain in right knee; E66.9 Obesity, unspecified; E78.00 Pure hypercholesterolemia, unspecified
CPT/HCPCS: 36415; 80053; 80061; 82306; 82607; 82746; 83036; 83735; 84100; 84153; 84443; 85025

== ENCOUNTER → 2018-03-10 | Outpatient (CLI) | payer OTHER ==
[2018-03-10 09:56] LABS: BASOPHILS % (AUTO) 0.6 % (0.0-2.0); EOSINOPHILS % (AUTO) 1.1 % (0.0-3.0); HEMATOCRIT 40.9 % (42.0-52.0); HEMOGLOBIN 13.7 G/DL (14.2-18.0); LYMPHOCYTES % (AUTO) 9.8 % (20.0-45.0); MEAN CORPUSCULAR VOLUME 88 FL (80-99); NEUTROPHILS % (AUTO) 81.5 % (45.0-75.0); PLATELET COUNT 261 K/UL (150-450); RED BLOOD COUNT 4.62 M/UL (4.70-6.10); RED CELL DISTRIBUTION WIDTH 12.5 % (11.6-14.8); WHITE BLOOD COUNT 11.6 K/UL (4.8-10.8)
[2018-03-10 10:13] LABS: ALANINE AMINOTRANSFERASE 37 U/L (12-78); ALBUMIN 3.7 G/DL (3.4-5.0); ALBUMIN/GLOBULIN RATIO 0.8 (1.0-2.7); ALKALINE PHOSPHATASE 111 U/L (46-116); ANION GAP 7 mmol/L (5-15); ASPARTATE AMINO TRANSFERASE 19 U/L (15-37); BILIRUBIN,TOTAL 0.6 MG/DL (0.2-1.0); BLOOD UREA NITROGEN 9 mg/dL (7-18); CALCIUM 9.2 MG/DL (8.5-10.1); CARBON DIOXIDE 29 MMOL/L (21-32); CHLORIDE 99 MMOL/L (98-107); CHOLESTEROL 157 MG/DL (< 200); CREATININE 0.8 MG/DL (0.55-1.30); HDL CHOLESTEROL 80 MG/DL (40-60); PHOSPHORUS 3.7 MG/DL (2.5-4.9); POTASSIUM 4.3 MMOL/L (3.5-5.1); SODIUM 135 MMOL/L (136-145); TRIGLYCERIDES 85 MG/DL (30-150)
[2018-03-10 10:16] LABS: APPEARANCE,URINE CLEAR; BILIRUBIN, URINE NEGATIVE (NEGATIVE); COLOR,URINE PALE YELLOW; GLUCOSE, URINE (UA) NEGATIVE (NEGATIVE); KETONES,URINE NEGATIVE (NEGATIVE); LEUKOCYTE ESTERASE ,URINE NEGATIVE (NEGATIVE); NITRITE,URINE NEGATIVE (NEGATIVE); PH,URINE 7 (4.5-8.0); PROTEIN,URINE 1+ (NEGATIVE); UROBILINOGEN,URINE NORMAL MG/DL (0.0-1.0)
== END | disposition home or self-care (01) ==
LOC: LAB 09:05
DX: E11.9 Type 2 diabetes mellitus without complications (principal); I10 Essential (primary) hypertension; E66.9 Obesity, unspecified
CPT/HCPCS: 36415; 80053; 80061; 81003; 82306; 82607; 83036; 83735; 84100; 84153; 84443; 85025; 85610; 85730; 87086

== ENCOUNTER → 2018-09-15 | Outpatient (CLI) | payer OTHER ==
[2018-09-15 09:58] LABS: BASOPHILS % (AUTO) 0.4 % (0.0-2.0); EOSINOPHILS % (AUTO) 1.2 % (0.0-3.0); HEMATOCRIT 41.1 % (42.0-52.0); HEMOGLOBIN 13.5 G/DL (14.2-18.0); LYMPHOCYTES % (AUTO) 7.3 % (20.0-45.0); MEAN CORPUSCULAR VOLUME 86 FL (80-99); MONOCYTES % (AUTO) 7.3 % (1.0-10.0); NEUTROPHILS % (AUTO) 83.7 % (45.0-75.0); PLATELET COUNT 355 K/UL (150-450); RED BLOOD COUNT 4.78 M/UL (4.70-6.10); RED CELL DISTRIBUTION WIDTH 12.5 % (11.6-14.8)
[2018-09-15 09:59] LABS: APPEARANCE,URINE CLEAR; BILIRUBIN, URINE NEGATIVE (NEGATIVE); COLOR,URINE PALE YELLOW; GLUCOSE, URINE (UA) NEGATIVE (NEGATIVE); KETONES,URINE NEGATIVE (NEGATIVE); LEUKOCYTE ESTERASE ,URINE NEGATIVE (NEGATIVE); NITRITE,URINE NEGATIVE (NEGATIVE); PH,URINE 7 (4.5-8.0); PROTEIN,URINE NEGATIVE (NEGATIVE); UROBILINOGEN,URINE 1 MG/DL (0.0-1.0)
[2018-09-15 10:12] LABS: ALANINE AMINOTRANSFERASE 20 U/L (12-78); ALBUMIN 3.6 G/DL (3.4-5.0); ALBUMIN/GLOBULIN RATIO 0.7 (1.0-2.7); ALKALINE PHOSPHATASE 86 U/L (46-116); ANION GAP 7 mmol/L (5-15); ASPARTATE AMINO TRANSFERASE 16 U/L (15-37); BILIRUBIN,TOTAL 0.7 MG/DL (0.2-1.0); BLOOD UREA NITROGEN 10 mg/dL (7-18); CALCIUM 9.1 MG/DL (8.5-10.1); CARBON DIOXIDE 29 MMOL/L (21-32); CHLORIDE 97 MMOL/L (98-107); CREATININE 0.9 MG/DL (0.55-1.30); PHOSPHORUS 4.3 MG/DL (2.5-4.9); POTASSIUM 4.6 MMOL/L (3.5-5.1); SODIUM 133 MMOL/L (136-145)
--- NOTE | 2018-09-15 11:14 | Diagnostic Imaging Report ---
Indication: Dyspnea Comparison: None 2 views of the chest obtained. Findings: Cardiomediastinal silhouette and pulmonary vascularity are within normal limits for age. The diaphragmatic contour is smooth and costophrenic angles are sharp. No pleural effusions are identified. The bones are osteopenic. Impression: No acute disease
== END | disposition home or self-care (01) ==
LOC: LAB 08:55
DX: R06.00 Dyspnea, unspecified (principal); M85.80 Other specified disorders of bone density and structure, unspecified site; R05 Cough; G72.9 Myopathy, unspecified
CPT/HCPCS: 36415; 71046; 80053; 81001; 83735; 84100; 85025; 85610; 85730; 87081

== ENCOUNTER → 2019-08-11 | Outpatient (CLI) | payer OTHER ==
[2019-08-11 10:29] LABS: APPEARANCE,URINE CLEAR; BILIRUBIN, URINE NEGATIVE (NEGATIVE); COLOR,URINE PALE YELLOW; GLUCOSE, URINE (UA) NEGATIVE (NEGATIVE); KETONES,URINE 2+ (NEGATIVE); LEUKOCYTE ESTERASE ,URINE NEGATIVE (NEGATIVE); NITRITE,URINE NEGATIVE (NEGATIVE); PH,URINE 6.5 (4.5-8.0); PROTEIN,URINE NEGATIVE (NEGATIVE); UROBILINOGEN,URINE NORMAL MG/DL (0.0-1.0)
[2019-08-11 10:54] LABS: BASOPHILS % (AUTO) 0.5 % (0.0-2.0); EOSINOPHILS % (AUTO) 3.2 % (0.0-3.0); HEMATOCRIT 39.8 % (42.0-52.0); HEMOGLOBIN 12.3 G/DL (14.2-18.0); LYMPHOCYTES % (AUTO) 19.7 % (20.0-45.0); MEAN CORPUSCULAR VOLUME 83 FL (80-99); MONOCYTES % (AUTO) 7.9 % (1.0-10.0); NEUTROPHILS % (AUTO) 68.7 % (45.0-75.0); PLATELET COUNT 276 K/UL (150-450); RED CELL DISTRIBUTION WIDTH 14.8 % (11.6-14.8); WHITE BLOOD COUNT 7.8 K/UL (4.8-10.8)
[2019-08-11 11:05] LABS: ALANINE AMINOTRANSFERASE 24 U/L (12-78); ALBUMIN 3.9 G/DL (3.4-5.0); ALBUMIN/GLOBULIN RATIO 0.8 (1.0-2.7); ALKALINE PHOSPHATASE 65 U/L (46-116); ANION GAP 10 mmol/L (5-15); ASPARTATE AMINO TRANSFERASE 16 U/L (15-37); BILIRUBIN,TOTAL 0.7 MG/DL (0.2-1.0); BLOOD UREA NITROGEN 17 mg/dL (7-18); CALCIUM 8.6 MG/DL (8.5-10.1); CARBON DIOXIDE 28 MMOL/L (21-32); CHLORIDE 99 MMOL/L (98-107); CHOLESTEROL 123 MG/DL (< 200); CREATININE 0.9 MG/DL (0.55-1.30); HDL CHOLESTEROL 50 MG/DL (40-60); PHOSPHORUS 3.7 MG/DL (2.5-4.9); POTASSIUM 4.2 MMOL/L (3.5-5.1); SODIUM 136 MMOL/L (136-145); TRIGLYCERIDES 75 MG/DL (30-150)
== END | disposition home or self-care (01) ==
LOC: LAB 09:55
DX: I10 Essential (primary) hypertension (principal); E78.00 Pure hypercholesterolemia, unspecified; E66.9 Obesity, unspecified; E11.40 Type 2 diabetes mellitus with diabetic neuropathy, unspecified; N40.0 Benign prostatic hyperplasia without lower urinary tract symptoms
CPT/HCPCS: 36415; 80053; 80061; 81003; 82306; 82607; 82746; 83036; 83735; 84100; 84153; 84443; 85025; 85610; 85730; 87086